=== PATIENT | female | born 1980 | race Caucasian/White ===

== ENCOUNTER → 2016-10-06 | Outpatient (REF) | payer MEDICARE, MEDICAID ==
[~2016-10-06] MED LIST: /AUGM875TA; /OLAN75TA; /QUET10TA OR; AMBI10TA; AMBI10TA OR; ATIV1TAB2; BENADRYL; CELE100C; COLA100C2; DEPLIN; FLEXERIL; HYDROCORTISONE0.5 %; IBUP800T; KEFL500C; KLON1TAB; KLON1TAB OR; LAMI25TA; LOTRIMIN; LUNE2TAB; LYRI150C; MORP15TA4; PERC5TAB8; PRED20TA; PREDPOW10; TOFR50TA; VALI10TA; VALI2TAB; XANA1TAB2; ZOLO100T; ZOLO100T OR; ZOLO50TA; ZOLOFT; ZYPR10TA; ZYPR5TAB; morphine sulfate IR; zoloft
[2016-10-06 14:16] LABS: ALBUMIN 3.8 GM/DL (3.2-5.2); ALBUMIN/GLOBULIN RATIO 1.03 (1.00-1.93); ALKALINE PHOSPHATASE 65 U/L (45-117); ALT/SGPT 15 U/L (12-78); ANION GAP 5 MEQ/L (8-16); AST/SGOT 12 U/L (15-37); BILIRUBIN,TOTAL 0.4 MG/DL (0.2-1.0); BLOOD UREA NITROGEN 19 MG/DL (7-18); CARBON DIOXIDE LEVEL 28 MEQ/L (21-32); CHLORIDE LEVEL 104 MEQ/L (98-107); CHOLESTEROL LEVEL 202 MG/DL (<200); CREATININE FOR GFR 0.84 MG/DL (0.55-1.02); GLOMERULAR FILTRATION RATE > 60.0 (>60); GLUCOSE, FASTING 94 MG/DL (70-105); POTASSIUM SERUM 4.6 MEQ/L (3.5-5.1); SODIUM LEVEL 137 MEQ/L (136-145); TOTAL PROTEIN 7.5 GM/DL (6.4-8.2); TRIGLYCERIDES LEVEL 191 MG/DL (<150)
== END ==
LOC: M LAB REF 13:02
PROVIDERS: ATTEND Nurse Practitioner Family
DX: E55.9 Vitamin D deficiency, unspecified (principal); F33.1 Major depressive disorder, recurrent, moderate; E78.5 Hyperlipidemia, unspecified

== ENCOUNTER → 2016-12-21 | Outpatient (REF) | payer MEDICARE, MEDICAID | LOC: M LAB REF 11:55 | PROVIDERS: ATTEND Nurse Practitioner Family | DX: E55.9 Vitamin D deficiency, unspecified (principal) ==